=== PATIENT | female | born 1965 | race Caucasian/White ===

== ENCOUNTER 2024-10-31 22:26 | Emergency (ER) | payer BC ==
[~2024-10-31] VITALS: Ht 160 cm; Wt 86.2 kg
[2024-10-31 22:37] VITALS: BP 145/81
[2024-10-31] MEDS ORDERED: Benzonatate 100 MG Cap PO ONE (23:35)
[2024-10-31] MEDS ORDERED: Azithromycin 250 MG Tab PO ONE (23:40)
[2024-10-31] MEDS ORDERED: Zithromax250 MG PO (23:44)
[2024-10-31] MEDS ORDERED: BENZ100A PO (23:44)
== END 2024-10-31 23:47 | disposition home or self-care (01) ==
LOC: ER 22:26
DX: J18.9 Pneumonia, unspecified organism (principal)
CPT/HCPCS: 71046; 99283-25; A9270